=== PATIENT | female | born 1960 | race Caucasian/White ===

== ENCOUNTER → 2016-10-31 | Outpatient (CLI) | payer OTHER ==
[~2016-10-31] MED LIST: CHOL100010 PO; CLC100 PO; LEVO175T25 PO; MELO15TA3 PO; ODVTWSS; OMEG10007 PO; OXYC-57 PO; PRAM0.129 PO; PRAV20TA PO; PRLSR20 PO; RIZA10TA18 PO; TRAZ100T29 PO
[2016-10-31 13:41] LABS: THYROID STIMULATING HORMONE 23.2 uIu/ml (0.300-4.500)
== END | disposition home or self-care (01) ==
LOC: C.LABPVFM 08:08
PROVIDERS: ATTEND Family Medicine
DX: B02.9 Zoster without complications (principal); E03.9 Hypothyroidism, unspecified

== ENCOUNTER → 2017-01-01 | Outpatient (CLI) | payer OTHER ==
[2017-01-01 18:39] LABS: THYROID STIMULATING HORMONE 2.63 uIu/ml (0.300-4.500)
== END | disposition home or self-care (01) ==
LOC: C.LABPVFM 11:05
PROVIDERS: ATTEND Family Medicine
DX: B02.9 Zoster without complications (principal); E03.9 Hypothyroidism, unspecified

== ENCOUNTER → 2017-04-23 | Outpatient (CLI) | payer OTHER | END | disposition home or self-care (01) | LOC: C.LABPVFM 12:17 | PROVIDERS: ATTEND Family Medicine | DX: B02.9 Zoster without complications (principal); E03.9 Hypothyroidism, unspecified ==

== ENCOUNTER 2018-04-19 11:32 | Emergency (ER) | payer OTHER ==
[~2018-04-19] VITALS: Ht 177.8 cm; Wt 111.8 kg
[~2018-04-19 11:32] MED LIST changes: +PRAM0.1212 PO; -PRAM0.129 PO
[2018-04-19 11:35] VITALS: TEMP 36.8; Ht 177.8 cm; Wt 111.8 kg
[2018-04-19] MEDS ORDERED: SODIUM CHLORIDE 0.9% 500ML 500 ML IV STA (11:51)
--- NOTE | 2018-04-19 12:07 | EMERGENCY ROOM VISIT NOTE ---
History First contact with patient: 11:46 Chief Complaint: RECTAL PAIN Stated Complaint: PERIRECTAL ABSCESS History of Present Illness The patient is a 57 year old female who presents to the Emergency Room via private vehicle referred by family doctor with complaints of "perirectal abscess ". The patient states that about 1 week ago she began with a tiny small like painful region between the rectal region and the perineum. She states that it has enlarged in this past Sunday so the family doctor which began her on antibiotics. She notes that she felt that enlarged from a marble sized to a golf ball yesterday and is now experiencing a great deal of pain. She rates her overall pain currently as a 5/10. Alleviating factors are heat, and a hot tub. She states that it is still painful. She saw the family doctor this morning who recommended going to the emergency department for evaluation secondary to its size and location. She notes that the family doctor did try to arrange outpatient surgical consultation however it was recommended she go to the emergency department to obtain this. Review of Systems A complete 10-point Review of Systems was discussed with the patient, with pertinent positives and negatives listed in the History of Present Illness. All remaining Review of Systems questions can be considered negative unless otherwise specified. Past Medical/Surgical History No pertinent. Family History No pertinent. Social History Smoking Status: Former Smoker Patient is currently employed. Current/Historical Medications Scheduled Ciprofloxacin Hcl (Cipro), 500 MG PO BID Doxycycline Hyclate (Doxycycline Hyclate), 100 MG PO Q12 Ergocalciferol (Vitamin D), 2,000 UNITS PO TID Escitalopram Oxalate (Lexapro), 20 MG PO QPM Levothyroxine Sodium (Levothyroxine Sodium), 175 MCG PO DAILY Metronidazole (Flagyl), 1 TAB PO TID Omeprazole (Prilosec), 20 MG PO DAILY Pramipexole Dihydrochloride (Mirapex), 0.375 MG PO QPM Pravastatin Sod (Pravastatin Sodium), 10 MG PO QPM Sulindac (Sulindac), 150 MG PO BID Trazodone HCl (Trazodone HCl), 150 MG PO QPM Scheduled PRN Rizatriptan Benzoate (Maxalt), 10 MG PO UD PRN for Migraine Physical Exam Vital Signs Date Time Temp Pulse Resp B/P (MAP) Pulse Ox O2 Delivery O2 Flow Rate FiO2 04/19/18 14:44 70 16 144/65 97 Room Air 04/19/18 13:30 71 16 147/64 97 Room Air 04/19/18 11:35 36.8 79 18 145/83 96 Room Air Physical Exam VITAL SIGNS - Vital signs and nursing notes were reviewed. Stable. Afebrile. GENERAL -57-year-old female appearing her stated age who is in no acute distress. Communicates well with provider and answers questions appropriately. SKIN - Without rashes. With contract modeler present, the rectal region was inspected visually and there is a palpable indurated and erythematous region anterior to the rectal region favoring the patient's left side. No drainage. Minimal fluctuance. There is surrounding induration. HEAD - NC/AT. EYES - Sclera anicteric. EARS - No deformities of external structures noted on gross examination bilaterally. NOSE - Midline and without cyanosis. No epistaxis or purulent drainage noted. MOUTH/OROPHARYNX - Without perioral cyanosis. LUNGS - Chest wall symmetric without accessory muscle use, intercostals retractions, or central cyanosis. Normal vesicular breath sounds CTA B/L. No wheezes, rales, or rhonchi appreciated. CARDIAC - RRR with S1/S2. No murmur, rubs, or gallops appreciated. ABDOMEN - Abdominal contour normal without pulsations or visible masses. BS normoactive all four quadrants. No tenderness, palpable masses, hepatosplenomegaly, or ascites noted. EXTREMITIES - No clubbing or peripheral cyanosis. No pretibial edema present. + 5/5 strength noted in UE/LE bilaterally. NEUROLOGIC - Cranial nerves II through XII grossly intact. Sensory intact to light touch throughout. PSYCH - A&O, and cooperates fully with examiner. Pt is very pleasant and interacts well with examiner. Medical Decision & Procedures ER Provider Diagnostic Interpretation: PELVIS W/IV CONT ONLY (CT) CLINICAL HISTORY: Perirectal abscess infection TECHNIQUE: Transaxial acquisition with multi axial reformatted images COMPARISON STUDY: 11/13/2012 FINDINGS: Right posterior perirectal collection within the subcutaneous tissues measuring 2.2 x 2.1 cm. Mild localized inflammatory change. This again is isolated to the fat itself. No definite extension to the rectal wall. Bladder is midline. Bowel pattern within the pelvis is nonobstructive. No evidence for bony erosive or blastic process. IMPRESSION: 1. Right posterior Perirectal abscess measuring 2.2 x 2.1 cm. 2. This is seen immediately deep to the skin of the right posterior perirectal region. 3. No definite extension to any major abdominal or pelvic structure. The above report was generated using voice recognition software. It may contain grammatical, syntax or spelling errors. Electronically signed by: Hunter Cai M.D. 04/19/2018 1:18 PM Dictated Date/Time: 04/19/2018 1:12 PM Laboratory Results 04/19/18 12:00 Red Blood Count 4.48, Mean Corpuscular Volume 89.5, Mean Corpuscular Hemoglobin 29.9, Mean Corpuscular Hemoglobin Concent 33.4, Mean Platelet Volume 10.7, Neutrophils (%) (Auto) 70.2, Lymphocytes (%) (Auto) 19.0, Monocytes (%) (Auto) 9.0, Eosinophils (%) (Auto) 1.2, Basophils (%) (Auto) 0.4, Neutrophils # (Auto) 6.51, Lymphocytes # (Auto) 1.76, Monocytes # (Auto) 0.83, Eosinophils # (Auto) 0.11, Basophils # (Auto) 0.04 04/19/18 12:00 Test 04/19/18 12:00 White Blood Count 9.27 K/uL (4.8-10.8) Red Blood Count 4.48 M/uL (4.2-5.4) Hemoglobin 13.4 g/dL (12.0-16.0) Hematocrit 40.1 % (37-47) Mean Corpuscular Volume 89.5 fL (80-100) Mean Corpuscular Hemoglobin 29.9 pg (25-34) Mean Corpuscular Hemoglobin Concent 33.4 g/dl (32-36) Platelet Count 170 K/uL (130-400) Mean Platelet Volume 10.7 fL (7.4-10.4) Neutrophils (%) (Auto) 70.2 % Lymphocytes (%) (Auto) 19.0 % Monocytes (%) (Auto) 9.0 % Eosinophils (%) (Auto) 1.2 % Basophils (%) (Auto) 0.4 % Neutrophils # (Auto) 6.51 K/uL (1.4-6.5) Lymphocytes # (Auto) 1.76 K/uL (1.2-3.4) Monocytes # (Auto) 0.83 K/uL (0.11-0.59) Eosinophils # (Auto) 0.11 K/uL (0-0.5) Basophils # (Auto) 0.04 K/uL (0-0.2) RDW Standard Deviation 45.6 fL (36.4-46.3) RDW Coefficient of Variation 13.9 % (11.5-14.5) Immature Granulocyte % (Auto) 0.2 % Immature Granulocyte # (Auto) 0.02 K/uL (0.00-0.02) Prothrombin Time 10.9 SECONDS (9.0-12.0) Prothromb Time International Ratio 1.0 (0.9-1.1) Activated Partial Thromboplast Time 25.1 SECONDS (21.0-31.0) Partial Thromboplastin Ratio 1.0 Anion Gap 8.0 mmol/L (3-11) Est Creatinine Clear Calc Drug Dose 102.5 ml/min Estimated GFR () 91.4 Estimated GFR (Non- 78.8 BUN/Creatinine Ratio 26.3 (10-20) Calcium Level 9.7 mg/dl (8.5-10.1) Total Bilirubin 0.8 mg/dl (0.2-1) Aspartate Amino Transf (AST/SGOT) 11 U/L (15-37) Alanine Aminotransferase (ALT/SGPT) 22 U/L (12-78) Alkaline Phosphatase 49 U/L (45-117) Total Protein 7.4 gm/dl (6.4-8.2) Albumin 3.9 gm/dl (3.4-5.0) Globulin 3.5 gm/dl (2.5-4.0) Albumin/Globulin Ratio 1.1 (0.9-2) Medications Administered Medications (Trade) Dose Ordered Sig/Favian Route Start Time Stop Time Status Last Admin Dose Admin Sodium Chloride 500 ml @ 999 mls/hr Q31M STAT IV 04/19/18 11:51 04/19/18 12:21 DC 04/19/18 11:51 999 MLS/HR Lidocaine/ Epinephrine (Xylocaine/Epine 1% Inj) 20 ml ONE STAT INFIL 04/19/18 13:39 04/19/18 13:40 DC 04/19/18 13:39 20 ML Medical Decision Patient was seen and evaluated as above in room a 12. Review was performed of nursing notes and vital signs. After obtaining a thorough history and physical examination the above work up was performed. She presents to us today referred by her family doctor for potential surgical drainage of a perirectal abscess. She is nontoxic on exam. No history of ulcerative colitis or Crohn's. She has never had a perirectal abscess before. She notes no fevers or chills. IV access was established, and blood work was also obtained. CT scan of the pelvis with contrast was obtained and reveals an abscess measuring about 2 cm in diameter. Benefit versus risk of drainage was discussed with the patient and consent was obtained. CBC reveals no concerning leukocytosis or anemia. Coags normal. Metabolic panel reveals dehydration. Otherwise no emergent process. Military Technician was present for examination of the wound. Patient was offered contract modeler for the procedure and declined. After saline and Betadine cleansing and 3 mL of 1% buffered lidocaine anesthesia , the abscess was incised with a number of scalpel blade. A large amount of purulent material was released with more expressed by pressure. A swab was obtained for culture. The abscess cavity was further and the deep pocket expressed. The abscess cavity was then copiously irrigated with sterile saline under pressure. The area was then packed . The area was cleaned with sterile saline and dressed with bacitracin and a bulky bandage. The patient tolerated the procedure well. Care was taken so as to not damage the sphincter surrounding regions. Patient notes intact sphincter tone post procedure. Case was also discussed with the attending physician. Patient tolerated procedure well, and appears stable for outpatient management. She was placed up on ciprofloxacin and Flagyl. She can discontinue the doxycycline. She is to follow-up in 2 days for packing removal. She is to return here with worsening symptoms which she was educated she had questions answered prior to discharge, and was discharged home in good condition. In the evaluation and treatment of this patient the following differential diagnoses were entertained: Perirectal abscess, perianal abscess, among others. Impression Primary Impression: Perianal abscess Departure Information Dispostion Home / Self-Care Condition GOOD Prescriptions Metronidazole (FLAGYL) 500 Mg Tab 1 TAB PO TID for 7 Days, #21 TAB Prov: Louie Felix PA-C 04/19/18 Ciprofloxacin Hcl (CIPRO) 500 Mg Tab 500 MG PO BID for 7 Days, #14 TAB Prov: Louie Felix PA-C 04/19/18 Referrals Marilee Neely M.D. (PCP) Patient Instructions My [facility] Additional Instructions You were seen in the emergency department for a perirectal abscess. At this time I recommend Flagyl which is metronidazole 1 tablet every 8 hours for 7 days. Also I recommend ciprofloxacin, 500 mg every 12 hours for 7 days as well. Please do not drink alcohol while taking these medications. Packing to be removed in 2 days. Please either return here have family doctor remove packing. If you develop fevers, chills, worsening symptoms please return. After 2 days a recommend warm baths for 1 week to help healing in the area Please return with any new/concerning symptoms.
[2018-04-19 12:08] LABS: BASO % 0.4 %; BASO ABS # 0.04 K/uL (0-0.2); EOS % 1.2 %; EOS ABS # 0.11 K/uL (0-0.5); HEMATOCRIT 40.1 % (37-47); HEMOGLOBIN 13.4 g/dL (12.0-16.0); IG# 0.02 K/uL (0.00-0.02); LYMPH ABS # 1.76 K/uL (1.2-3.4); MEAN CELL VOLUME 89.5 fL (80-100); MEAN CORPUSCULAR HEMOGLOBIN 29.9 pg (25-34); MEAN CORPUSCULAR HGB CONC 33.4 g/dl (32-36); MEAN PLATELET VOLUME 10.7 fL (7.4-10.4); MONO ABS # 0.83 K/uL (0.11-0.59); NEUT % 70.2 %; NEUT ABS # 6.51 K/uL (1.4-6.5); PLATELET COUNT 170 K/uL (130-400); RED CELL DISTRIBUTION WIDTH CV 13.9 % (11.5-14.5); RED CELL DISTRIBUTION WIDTH SD 45.6 fL (36.4-46.3); WHITE BLOOD COUNT 9.27 K/uL (4.8-10.8)
[2018-04-19 12:17] LABS: PTT PATIENT 25.1 SECONDS (21.0-31.0)
[2018-04-19 12:30] LABS: ALBUMIN 3.9 gm/dl (3.4-5.0); CALCIUM 9.7 mg/dl (8.5-10.1); CREATININE 0.83 mg/dl (0.60-1.20); POTASSIUM 3.9 mmol/L (3.5-5.1); TOTAL PROTEIN 7.4 gm/dl (6.4-8.2)
[2018-04-19] MEDS ORDERED: OPTIRAY 320 IV PRN (12:45)
--- NOTE | 2018-04-19 13:20 | DIAGNOSTIC IMAGING REPORT ---
PELVIS W/IV CONT ONLY (CT) CLINICAL HISTORY: Perirectal abscess infection TECHNIQUE: Transaxial acquisition with multi axial reformatted images COMPARISON STUDY: 11/13/2012 FINDINGS: Right posterior perirectal collection within the subcutaneous tissues measuring 2.2 x 2.1 cm. Mild localized inflammatory change. This again is isolated to the fat itself. No definite extension to the rectal wall. Bladder is midline. Bowel pattern within the pelvis is nonobstructive. No evidence for bony erosive or blastic process. IMPRESSION: 1. Right posterior Perirectal abscess measuring 2.2 x 2.1 cm. 2. This is seen immediately deep to the skin of the right posterior perirectal region. 3. No definite extension to any major abdominal or pelvic structure. The above report was generated using voice recognition software. It may contain grammatical, syntax or spelling errors. Electronically signed by: Hunter Cai M.D. 04/19/2018 1:18 PM Dictated Date/Time: 04/19/2018 1:12 PM
[2018-04-19] MEDS ORDERED: PRVC10 PO (13:28)
[2018-04-19] MEDS ORDERED: DSY/150 PO (13:28)
[2018-04-19] MEDS ORDERED: CLN150 PO (13:28)
[2018-04-19] MEDS ORDERED: RIZA10TA18 PO (13:28)
[2018-04-19] MEDS ORDERED: ESCI1TAB10 PO (13:28)
[2018-04-19] MEDS ORDERED: ERGO2000 PO (13:28)
[2018-04-19] MEDS ORDERED: DXY/100 PO (13:28)
[2018-04-19] MEDS ORDERED: PRLSR20 PO (13:28)
[2018-04-19] MEDS ORDERED: LEVO175T3 PO (13:28)
[2018-04-19] MEDS ORDERED: PRAM1TAB52 PO (13:28)
[2018-04-19] MEDS ORDERED: LIDOCAINE/EPINEPHRINE 1% 20 ML VIAL INFIL STA (13:39)
[2018-04-19] MEDS ORDERED: METR-162 PO (14:37)
[2018-04-19] MEDS ORDERED: CIPR-255 PO (14:37)
[2018-04-19 14:44] VITALS: BP 144/65; PULSE 70; O2SAT 97
== END 2018-04-19 14:52 | disposition home or self-care (01) ==
LOC: C.ED 11:33 → C.EDA 14:52
DX: K61.1 Rectal abscess (principal); E86.0 Dehydration; Z87.891 Personal history of nicotine dependence